=== PATIENT | female | born 1950 | race Caucasian/White ===

== ENCOUNTER 2021-03-06 20:04 | Inpatient (IN) | payer MEDICARE, OTHER ==
[~2021-03-06] VITALS: Ht 170.2 cm; Wt 83.5 kg
[2021-03-06] MEDS ORDERED: DILTIAZEM 5 MG/ML, 5ML ONE (20:16)
[2021-03-06] MEDS ORDERED: DILTIAZEM 5 MG/ML, 5ML IV ONE (20:30)
[2021-03-06] MEDS ORDERED: DILTIAZEM 125 MG in SODIUM CHLORIDE 0.9% 100 ML IV SCH ×2 (20:30→22:00)
[2021-03-06 20:33] LABS: BASOPHILS % (AUTO) 1 % (0-1); EOSINOPHILS % (AUTO) 2 % (1-7); LYMPHOCYTES % (AUTO) 34 % (22-44); MEAN CORPUSCULAR HEMOGLOBIN 28.6 pg (27.0-34.8); MEAN CORPUSCULAR HGB CONC 33.8 g/dL (32.4-35.8); MEAN PLATELET VOLUME 6.5 fL (7.4-10.4); MONOCYTES % (AUTO) 10 % (2-9); NEUTROPHILS % (AUTO) 52 % (42-75); PLATELET COUNT 351 x10^3/uL (130-400); RED BLOOD COUNT 4.94 x10^6/uL (3.82-5.3); RED CELL DISTRIBUTION WIDTH 14.2 % (9.6-15.2)
[2021-03-06 20:45] LABS: ALBUMIN 3.7 g/dL (3.4-5.0); ANION GAP 7 mmol/L (5-15); CALCIUM 9.3 mg/dL (8.5-10.1); CHLORIDE 109 mmol/L (98-107); CREATININE 0.76 mg/dL (0.55-1.02)
[2021-03-06 20:49] LABS: TROPONIN I < 0.015 ng/mL (0.000-0.045)
[2021-03-06] MEDS ORDERED: APIXABAN 5 MG TABLET PO ONE (21:30)
[2021-03-06] MEDS ORDERED: POLYETHYLENE GLYCOL 17 GM PACKET PO PRN (22:00)
[2021-03-06] MEDS ORDERED: ACETAMINOPHEN 325 MG TABLET PO PRN (22:00)
[2021-03-06] MEDS ORDERED: MELATONIN 5 MG TABLET PO PRN (22:00)
[2021-03-06] MEDS ORDERED: ONDANSETRON ODT 4 MG PO PRN (22:00)
[2021-03-06] MEDS ORDERED: DOCUSATE 100 MG CAPSULE PO PRN (22:00)
[2021-03-06] MEDS ORDERED: LABETALOL 5MG/ML, 20ML IVPush PRN (22:00)
[2021-03-06] MEDS ORDERED: BISACODYL 10 MG SUPP PR PRN (22:00)
[2021-03-06] MEDS ORDERED: ONDANSETRON 2MG/ML, 2ML IVPush PRN (22:00)
[2021-03-06] MEDS ORDERED: SODIUM CHLORIDE 0.9% 1,000 ML IV SCH (22:00)
[2021-03-06] MEDS ORDERED: ONDANSETRON 2MG/ML, 2ML ONE (22:50)
[2021-03-07] MEDS ORDERED: VITA1TAB85 PO (00:05)
[2021-03-07] MEDS ORDERED: GINK30CA2 PO (00:05)
[2021-03-07 00:13] VITALS: BP 117/74
[2021-03-07] MEDS ORDERED: ENOXAPARIN 80 MG/0.8 ML SQ SCH (00:30)
[2021-03-07 00:44] VITALS: BP 117/74
[2021-03-07] MEDS ORDERED: METOPROLOL 1 MG/ML, 5ML IVPush PRN (02:00)
[2021-03-07 04:58] VITALS: BP 104/64
[2021-03-07 05:27] LABS: BASOPHILS % (AUTO) 1 % (0-1); EOSINOPHILS % (AUTO) 2 % (1-7); LYMPHOCYTES % (AUTO) 31 % (22-44); MEAN CORPUSCULAR HEMOGLOBIN 28.7 pg (27.0-34.8); MEAN CORPUSCULAR HGB CONC 33.8 g/dL (32.4-35.8); MONOCYTES % (AUTO) 9 % (2-9); NEUTROPHILS % (AUTO) 57 % (42-75); PLATELET COUNT 304 x10^3/uL (130-400); RED BLOOD COUNT 4.46 x10^6/uL (3.82-5.3); RED CELL DISTRIBUTION WIDTH 14.4 % (9.6-15.2)
[2021-03-07 05:31] LABS: ANION GAP 5 mmol/L (5-15); CALCIUM 8.8 mg/dL (8.5-10.1); CHLORIDE 113 mmol/L (98-107)
[2021-03-07 05:44] LABS: CREATININE 0.61 mg/dL (0.55-1.02)
[2021-03-07] MEDS ORDERED: METOPROLOL TARTRATE 50 MG TAB PO SCH (07:30)
[2021-03-07] MEDS ORDERED: RIVA20TA PO (07:53)
[2021-03-07] MEDS ORDERED: METO50TA82 PO (07:53)
[2021-03-07 08:05] VITALS: BP 106/64
[2021-03-07] MEDS ORDERED: DILTIAZEM 120 MG CAP.ER.12H PO SCH (09:00)
[2021-03-07] MEDS ORDERED: RIVAROXABAN 20 MG TABLET PO SCH (17:00)
== END 2021-03-07 13:20 | disposition home or self-care (01) | DRG 309 ==
LOC: ED 22:07 → EDIP 22:49 → 5SO 23:43
PROVIDERS: ADMIT Internal Medicine; ATTEND Family Medicine
DX: I48.0 Paroxysmal atrial fibrillation (principal); D68.69 Other thrombophilia; E78.5 Hyperlipidemia, unspecified; I10 Essential (primary) hypertension; Z83.3 Family history of diabetes mellitus; Z79.01 Long term (current) use of anticoagulants
CPT/HCPCS: 36415; 71045; 80048; 82040; 84443; 84484; 85025; 93005; 93306; 96374; 99285; G0378; J1650; J7030

== ENCOUNTER → 2021-04-09 | Outpatient (CLI) | payer MEDICARE, OTHER ==
[~2021-04-09] MED LIST: GINK30CA2 PO; METO50TA82 PO; RIVA20TA PO; VITA1TAB85 PO
== END | disposition home or self-care (01) ==
LOC: CFH 08:23
PROVIDERS: ATTEND Internal Medicine Cardiovascular Disease
DX: R06.02 Shortness of breath (principal)
CPT/HCPCS: 78452; 93017; A9502